=== PATIENT | male | born 2000 | race African-American/Black ===

== ENCOUNTER 2018-01-15 18:32 | Emergency (ER) | payer OTHER ==
[~2018-01-15] VITALS: Ht 175.2 cm; Wt 104.3 kg
[~2018-01-15 18:32] MED LIST: PERCOCET 325 MG1 TAB PO
[2018-01-15 18:34] VITALS: BP 135/83
[2018-01-15] MEDS ORDERED: Motrin,Rufen800 MG PO (18:46)
== END 2018-01-15 18:50 | disposition home or self-care (01) ==
LOC: ED 18:32
DX: M65.4 Radial styloid tenosynovitis [de Quervain] (principal)

== ENCOUNTER 2020-12-11 14:53 | Emergency (ER) | payer OTHER ==
[~2020-12-11 14:53] MED LIST changes: +Motrin,Rufen800 MG PO
[2020-12-11 15:02] VITALS: BP 157/88
[2020-12-11] MEDS ORDERED: SILVADENE20 GM T (15:53)
[2020-12-11] MEDS ORDERED: IBUPROFEN600 MG PO (15:54)
[2020-12-11] MEDS ORDERED: HYDROCODONE-AC1 EAC1 PO (15:56)
[2020-12-11] MEDS ORDERED: FLAGYL500 MG PO (16:47)
[2020-12-11] MEDS ORDERED: DOXYCYCLINE100 M3 PO (16:47)
== END 2020-12-11 16:32 | disposition home or self-care (01) ==
LOC: ED 14:53
DX: T22.00XA Burn of unspecified degree of shoulder and upper limb, except wrist and hand, unspecified site, initial encounter (principal); Z79.899 Other long term (current) drug therapy; X08.8XXA Exposure to other specified smoke, fire and flames, initial encounter; Y93.89 Activity, other specified; Y92.89 Other specified places as the place of occurrence of the external cause; Y99.8 Other external cause status